=== PATIENT | female | born 1945 | race Caucasian/White ===

== ENCOUNTER 2017-01-20 20:06 | Emergency (ER) | payer OTHER ==
[~2017-01-20] VITALS: Ht 162.6 cm; Wt 74.1 kg
[2017-01-20 20:15] VITALS: BP 152/88; PULSE 94; RESP 16; O2SAT 95
--- NOTE | 2017-01-20 22:37 | ED.REPORT ---
HPI- Female Date of Service January 20, 2017 ED Provider: Dr. Caba Patient is a 71 y/o female with a previous UTI who presents to the ED complaining of urinary spasm symptoms that began to worsen this afternoon. The patient was recently treated for a UTI and finished the antibiotics 8 days ago. Her current symptoms are similar to when she was diagnosed with a UTI. She denies burning with urination, fever, chills, nausea or vomiting. She is allergic to Demerol and sulfa drugs. Nursing Notes Stated Complaint: UTI Chief Complaint: Female Abdominal Pain Nursing Notes Reviewed: Yes Allergies: Coded Allergies: meperidine (Verified Allergy, Unknown, 01/20/17) Uncoded Allergies: SULFA (Allergy, Unknown, 01/20/17) Scheduled Cephalexin (Keflex) 500 Mg Capsule 500 MG PO BID Scheduled PRN Phenazopyridine (Pyridium) 200 Mg Tablet 200 MG PO TID PRN PRN For Pain General Time Seen by MD: 22:36 Chief Complaint Other (urinary spasms) Hx Obtained From: Patient Arrived By: Walk-in Sudden in Onset?: No Onset Occurred: 5 - 8 hours ago Symptom Duration: Since onset Quality: Painful Severity: Current: Moderate Severity: Maximum: Moderate Recent Healthcare: No recent hospitalization, Recent doctor visit Similar Sx Previous: Yes Past Medical History Past Medical History Recent UTI Reports: Hypertension Past Surgical History Unknown Family History Noncontributory Smoking History Unknown if Ever Smoker Social History Alcohol Use: "Social" Other Social History: Local resident Ambulatory Status Independent Review of Systems Review of Systems Note: +urinary spasms Constitutional: Denies: Chills, Fever GI: Denies: Nausea, Vomiting Female: Denies: Dysuria Complete sys rev & neg: except as marked. Physical Exam Initial Vital Signs Vital Signs (First) Date Time Temp Pulse Resp B/P Pulse Ox O2 Delivery O2 Flow Rate FiO2 01/20/17 20:15 36.2 94 16 152/88 95 Room Air Initial VS: Reviewed, Vital signs abnormal Head / Eyes: Atraumatic, Normocephalic, PERRL ENT: Mucous membranes moist, Conjunctiva normal, No scleral icterus Neck: Supple, Non-tender, Full range of motion Respiratory: Breath sounds normal, No respiratory distress Cardiovascular: Regular rate & rhythm, Heart sounds normal Abdomen / GI: Soft, Non-tender, No guarding, No rebound Extremities: Vascular intact, Neuro intact, No swelling, No tenderness Skin: Warm, Dry Neurologic: Alert, Oriented Psychiatric: Mood/affect normal, Behavior normal Female Genitourinary: Exam deferred General/Constitutional: Awake, Alert, No acute distress Interpretation & Diagnostics Lab Results Interpretation Test 01/20/17 22:30 01/20/17 22:32 Hold Urine Received (Received) Urine Color Yellow (YELLOW) Urine Appearance Cloudy (CLEAR,HAZY) Urine pH 5.5 (5.0-8.0) Urine Specific [place] 1.025 (1.003-1.035) Urine Protein 30mg/dL (NEG,TRACE) Urine Glucose (UA) Negativemg/dL (NEGATIVE) Urine Ketones Negativemg/dL (NEGATIVE) Urine Occult Blood Large (NEGATIVE) Urine Nitrite Negative (NEGATIVE) Urine Bilirubin Negative (NEGATIVE) Urine Urobilinogen Normalmg/dL (NORMAL) Urine Leukocyte Esterase Moderate (NEGATIVE) Urine RBC >50/hpf (0-2) Urine WBC >50/hpf (0-5) Urine Epithelial Cells Few/hpf (NONE-MOD) Urine Crystals None seen (NONE SEEN) Urine Bacteria Moderate/hpf (NONE-FEW) Urine Hyaline Casts None/lpf (NONE) Urine Granular Casts None seen (NONE SEEN) Urine Waxy Casts None seen (NONE SEEN) Urine Red Blood Cell Casts None seen (NONE SEEN) Urine White Blood Cell Casts None seen (NONE SEEN) Urine Mucus None seen (None Seen) Urine Trichomonas None seen (NONE SEEN) Urine Yeast None (NONE SEEN) Urinalysis Comment None Urine Culture Reflexed Indicated Re-Eval/Medical Decision Med Decision/Clinical Course The patient had a recent urinary tract infection, she thinks she may have been on Macrobid. I do not have results in the computer. She does have another urinary tract infection but no signs of upper infection. She was started on Keflex. Source of Hx: Old records Re-Evaluation/Progress : Time of Eval: 23:03 Re-Evaluation/Progress Note: Patient is informed of plan to discharge and the need to increase fluid intake. She understands and agrees with the plan. All questions have been answered at this time. Counseled Regarding: Diagnosis, Lab results, Need for follow-up, When/why to return to ED Discharge & Departure Impression: Primary Impression: UTI (urinary tract infection) Urinary tract infection type: site unspecified Hematuria presence: with hematuria Qualified Code: N39.0 - Urinary tract infection, site not specified Disposition: Home Discharge Condition All VS Reviewed: Yes Condition: Stable Additional Instructions: Thank you for entrusting us with your care. Take your antibiotics every 12 hours until finished. You should attempt to increase your fluid intake to remain hydrated. You may try to drink less caffeinated tea, and more of it if needed. Return to the emergency department if fever, increased pain or any other concerning symptoms occur. Referrals: Lenin Stein MD (PCP) Scribe Attestation Portions of this note were transcribed by Marco A Aguilar and Ingrid Lara. I, Dr. Caba personally performed the history, physical exam and medical decision- making; I reviewed and confirmed the accuracy of the information in the transcribed note. Signed by: Marco A Lara, Vangie, 01/20/2017 - [id number]. copies to: Lenin Stein MD, Jena M MD January 20, 2017 22:37 Marco A Aguilar January 20, 2017 22:51 Ingrid Lara January 20, 2017 23:14
[2017-01-20 22:44] LABS: APPEARANCE,URINE CLOUDY (CLEAR,HAZY); COLOR,URINE YELLOW (YELLOW); PH,URINE 5.5 (5.0-8.0)
[2017-01-20 22:45] LABS: OCCULT BLOOD,URINE LARGE (NEGATIVE); UROBILINOGEN,URINE NORMAL (NORMAL)
[2017-01-20] MEDS ORDERED: CEPH-512 PO (22:50)
[2017-01-20] MEDS ORDERED: PHEN-684 PO (22:50)
[2017-01-20] MEDS ORDERED: Phenazopyridine 97.5 mg Tablet PO ONE (22:50)
[2017-01-20 23:02] VITALS: BP 128/71; PULSE 71; RESP 18; O2SAT 99
== END 2017-01-20 23:02 | disposition home or self-care (01) ==
LOC: SED 20:06
DX: N39.0 Urinary tract infection, site not specified (principal); I10 Essential (primary) hypertension; Z88.5 Allergy status to narcotic agent; Z88.2 Allergy status to sulfonamides

== ENCOUNTER → 2017-06-12 | Day surgery (SDC) | payer OTHER ==
[~2017-06-12] VITALS: Ht 162.6 cm; Wt 69.8 kg
[~2017-06-12] MED LIST: 0.9% Sodium Chloride 1,000 ML IV SCH; BUDE90AE IH; CALC-243 PO; CLOB15CR3 TOP; CRAN300T PO; CYCL1DRO OCULAR; ESTR1TAB28 PO; FEXO-106 PO; FLAX100038 PO; FLUT16SP NS; GLUC-123 PO; LOSA25TA21 PO; MULT-1018 PO; PRE20 PO; SIMV20TA4 PO; Sodium Chloride LOK Flush 10 mL Syringe IV PRN; fentaNYL-PF 50 mCg/mL 2 mL Inj IVPUSH PRN
[2017-06-12 08:40] VITALS: BP 139/80; PULSE 72; RESP 16; O2SAT 98
[2017-06-12 09:12] VITALS: BP 117/64; PULSE 67; O2SAT 93
[2017-06-12 09:22] VITALS: BP 126/64; PULSE 63; RESP 16; O2SAT 96
[2017-06-12 09:32] VITALS: BP 142/82; PULSE 67; RESP 16; O2SAT 96
--- NOTE | 2017-06-12 11:55 | ENDO ---
[address] [address] ENDOSCOPY PROCEDURE PATIENT: BERNABE SHIRLEY : 1945 MR#: [id number] ADMIT: 06/12/2017 JOB ID: [id number] DATE: 06/12/2017 TYPE OF OPERATION: Colonoscopy. PREOPERATIVE DIAGNOSIS(ES): Colorectal cancer screening. POSTOPERATIVE DIAGNOSIS(ES): Normal colonoscopy. ANESTHESIA: 1. Fentanyl 75 mcg. 2. Versed 4 mg IV administered. COMPLICATIONS: None. BLOOD LOSS: Minimal. DESCRIPTION OF PROCEDURE: After risks and benefits were explained to the patient, informed consent was obtained. After anesthesia was administered, colonoscope was then inserted per rectum into the cecum. Mucosa carefully examined. Prep of the patient was excellent. After procedure was done, the scope was withdrawn and the procedure terminated. FINDINGS: Upon inspection of the anus, no masses, hemorrhoids, ulcers, or fissures that were seen. Throughout the entire examination, no polyps or masses. Retroflexion normal. IMPRESSION: Normal colonoscopy. RECOMMENDATIONS: Repeat colonoscopy in 10 years.
== END | disposition home or self-care (01) ==
LOC: END 01:13
PROVIDERS: ATTEND Internal Medicine Gastroenterology
DX: Z12.11 Encounter for screening for malignant neoplasm of colon (principal); I10 Essential (primary) hypertension; E78.5 Hyperlipidemia, unspecified; M19.90 Unspecified osteoarthritis, unspecified site; J45.21 Mild intermittent asthma with (acute) exacerbation; Z87.440 Personal history of urinary (tract) infections; Z79.890 Hormone replacement therapy
CPT/HCPCS: G0121; G0500; J2250; J3010; J7030